=== PATIENT | male | born 1970 | race Caucasian/White ===

== ENCOUNTER 2016-11-12 22:22 | Emergency (ER) | payer OTHER ==
[~2016-11-12] VITALS: Ht 170.2 cm; Wt 113.6 kg
[2016-11-12 22:26] VITALS: BP 177/100; PULSE 100; RESP 20; O2SAT 97
[2016-11-13 00:29] LABS: APPEARANCE,URINE HAZY (CLEAR,HAZY); COLOR,URINE STRAW (YELLOW); OCCULT BLOOD,URINE NEGATIVE (NEGATIVE); PH,URINE 5.5 (5.0-8.0); UROBILINOGEN,URINE NORMAL (NORMAL)
--- NOTE | 2016-11-13 01:31 | ED.REPORT ---
HPI-Back Pain 40 and Over Date of Service Nov 13, 2016 ED Provider: Dr. Martinez The pt is a 46 y/o male with a hx of Type II DM who presents to the ED complaining of sharp lower back pain that exacerbates with movement, onset last week. He denies numbness and weakness unilaterally, numbness and weakness in his lower extremities and dysuria. The pt has been camping recently and has been lifting and exerting himself as well as sleeping on a hard surface. Nursing Notes Stated Complaint: SHARP LEFT AND RIGHT FLANK AND RIB PAIN Chief Complaint: Back Pain or Injury Nursing Notes Reviewed: Yes Allergies: Coded Allergies: No Known Allergies (Verified , 11/12/16) Uncoded Allergies: SOME PETS AND SOME PLANTS (Allergy, Unknown, 12/01/04) Scheduled PRN Ibuprofen (Ibuprofen) 400 Mg Tablet 400 MG PO QID PRN PRN For Pain Methocarbamol (Robaxin-750) 750 Mg Tablet 1-2 TAB PO QID PRN PRN For Spasm Tramadol (Tramadol) 50 Mg Tablet 100 MG PO Q6H PRN PRN For Pain General Time Seen by MD: 01:31 Chief Complaint Back pain Hx Obtained From: Patient Arrived By: Walk-in Sudden in Onset?: No Onset Occurred: 1 week ago Symptom Duration: Since onset Location: : Spinal lumbar area Quality: Painful Radiation: : Does not radiate Severity: Current: Moderate Severity: Maximum: Moderate Recent Healthcare: No recent doctor visit Similar Sx Previous: No Past Medical History Past Medical History Type II DM Past Surgical History none reported Smoking History Unknown if Ever Smoker Social History Alcohol Use: "Social" Other Social History: Good social support Ambulatory Status Independent Review of Systems Male: Denies Dysuria Musculoskeletal: Reports: Back pain Neurologic: Denies: Numbness (in lower extremities and unilaterally), Weakness (lower extremities and unilaterally) Complete sys rev & neg: except as marked. Physical Exam Initial Vital Signs Vital Signs (First) Date Time Temp Pulse Resp B/P Pulse Ox O2 Delivery O2 Flow Rate FiO2 11/12/16 22:26 36.4 100 20 177/100 97 Room Air Initial VS: Reviewed Head / Eyes: Atraumatic, Normocephalic Neck: Supple, Non-tender, Full range of motion Extremities: Vascular intact, Neuro intact, No swelling, No tenderness Skin: Warm, Dry, No cyanosis General/Constitutional: Awake, Alert, No acute distress, Well appearing, Cooperative Respiratory / Chest: Atraumatic, Breath sounds NL, Breath sounds = bilat, No respiratory distress, No rales, No rhonchi, No wheezing Cardiovascular: Heart rate NL, Regular rhythm, Heart sounds NL, No gallop, No murmurs, No rubs Abdomen: Atraumatic, Soft, Non-tender, No guarding, No rebound Back: Atraumatic, Full range of motion, No CVA tenderness Paraspinus tenderness, worse on the left. Palpable spasms Neurologic: Oriented X3, No sensory deficits Interpretation & Diagnostics Lab Results Interpretation Test 11/12/16 23:59 Urine Color Straw (YELLOW) Urine Appearance Hazy (CLEAR,HAZY) Urine pH 5.5 (5.0-8.0) Urine Specific [place] 1.039 (1.003-1.035) Urine Protein Negativemg/dL (NEG,TRACE) Urine Glucose (UA) >2000mg/dL (NEGATIVE) Urine Ketones Negativemg/dL (NEGATIVE) Urine Occult Blood Negative (NEGATIVE) Urine Nitrite Negative (NEGATIVE) Urine Bilirubin Negative (NEGATIVE) Urine Urobilinogen Normalmg/dL (NORMAL) Urine Leukocyte Esterase Negative (NEGATIVE) Urine RBC 0-2/hpf (0-2) Urine WBC 0-5/hpf (0-5) Urine Epithelial Cells Occasional/hpf (NONE-MOD) Urine Crystals None seen (NONE SEEN) Urine Bacteria None/hpf (NONE-FEW) Urine Hyaline Casts None/lpf (NONE) Urine Granular Casts None seen (NONE SEEN) Urine Waxy Casts None seen (NONE SEEN) Urine Red Blood Cell Casts None seen (NONE SEEN) Urine White Blood Cell Casts None seen (NONE SEEN) Urine Mucus None seen (None Seen) Urine Trichomonas None seen (NONE SEEN) Urine Yeast None (NONE SEEN) Urinalysis Comment None Urine Culture Reflexed Not indicated Re-Eval/Medical Decision Med Decision/Clinical Course Low back pain without sciatica and without significant worrisome findings otherwise. No indication for imaging. No trauma beyond mild lifting. Improving over the course of his stay here. He is regretting presenting at this point since he is already mostly better. Discharged home with Robaxin, baseline NSAID, and brief when necessary tramadol. Source of Hx: Old records Re-Evaluation/Progress : Time of Eval: 01:38 Re-Evaluation/Progress Note: Rechecked pt. Discussed lab results, diagnosis and plan to discharge. Pt understands and agrees with the plan. F/U instruction and RTER warning given. All questions addressed. Counseled Regarding: Diagnosis, Lab results, Need for follow-up, When/why to return to ED Discharge & Departure Impression: Primary Impression: Lumbosacral strain Encounter type: initial encounter Qualified Code: S39.012A - Strain of muscle, fascia and tendon of lower back, initial encounter Additional Impression: Low back pain Chronicity: acute Back pain laterality: bilateral Sciatica presence: without sciatica Qualified Code: M54.5 - Low back pain Disposition: Home Discharge Condition All VS Reviewed: Yes Condition: Stable Patient Instructions: Acute Low Back Pain (ED), Sciatica (ED) Additional Instructions: Ibuprofen 4 mg four times daily. Robaxin two tablets four times daily. Brief use of tramadol two tablets four times daily if needed for pain. Apply heat to the back. Avoid sitting avoid bending avoid lifting. Use a back roll or lumbar support when you do sit. Follow-up with your doctor in the office. Return for numbness, weakness, bowel or bladder complaints. Referrals: Kira Rajput PA-C (PCP) Scribe Attestation Portions of this note were transcribed by Lilibeth Pereira. I,, personally performed the history, physical exam and medical decision-making;I reviewed and confirmed the accuracy of the information in the transcribed note. Signed by Lisa Boswell. 11/13/16 copies to: Kira Rajput PA-C, Christopher W MD Nov 13, 2016 01:31 Lilibeth Pereira Nov 13, 2016 01:42
[2016-11-13] MEDS ORDERED: IBUP400T22 PO (01:45)
[2016-11-13] MEDS ORDERED: TRAM50TA2 PO (01:45)
[2016-11-13] MEDS ORDERED: METH-313 PO (01:45)
[2016-11-13 02:13] VITALS: BP 135/83; PULSE 93; RESP 16; O2SAT 97
[2016-11-13] MEDS ORDERED: OMEP20CA11 PO (14:26)
[2016-11-13] MEDS ORDERED: AGM875T PO (14:26)
[2016-11-13] MEDS ORDERED: CYCL10TA9 PO (14:26)
[2016-11-13] MEDS ORDERED: LIRA0.6P2 SQ (14:26)
[2016-11-13] MEDS ORDERED: MECL-114 PO (14:26)
[2016-11-13] MEDS ORDERED: NPR500T PO (14:26)
[2016-11-13] MEDS ORDERED: DAPA10TA PO (14:26)
[2016-11-13] MEDS ORDERED: LISI2.5T PO (14:26)
[2016-11-13] MEDS ORDERED: METF500T4 PO (14:26)
== END 2016-11-13 02:13 | disposition home or self-care (01) ==
LOC: SED 22:22
DX: S39.012A Strain of muscle, fascia and tendon of lower back, initial encounter (principal); X50.0XXA Overexertion from strenuous movement or load, initial encounter; Y93.89 Activity, other specified; Y92.9 Unspecified place or not applicable; Y99.8 Other external cause status; E11.9 Type 2 diabetes mellitus without complications
CPT/HCPCS: 81000; 82948; 96372; 99284; J1885

== ENCOUNTER 2016-11-15 10:10 | Day surgery (SDC) | payer OTHER ==
[~2016-11-15] VITALS: Ht 170.2 cm; Wt 113.4 kg
--- NOTE | 2016-11-15 07:46 | PCM.HPANE ---
Patient Data Surgeon Admitting Provider: Attending Provider:Esequiel Montenegro MD Primary Care Physician:Kira Rajput PA-C Other Provider:Patrick Christiansen Anesthesia Reason for Visit Reflux Esophagitis Ht/WT & BMI Body Mass Index Allergies Coded Allergies: No Known Allergies (Verified , 11/12/16) Uncoded Allergies: SOME PETS AND SOME PLANTS (Allergy, Unknown, 12/01/04) Past Anesthesia History Anesthesia History: Denies:: Abnormal Airway, Difficult Intubation Diabetes History Hx Diabetes?: Yes MRSA MRSA: No Medications Reported Medications Liraglutide (Victoza 3-Lyle)0.6 Mg/0.1 Ml Pen.injctr0.6 Mg SQ 11/13/16 Omeprazole 20 Mg Capsule.dr20 Mg PO DAILY Ref 0 11/13/16 Naproxen 500 Mg Sei389 Mg PO BID PRN For Pain Ref 0 11/13/16 Metformin 500 Mg Tablet1,000 Mg PO BID Ref 0 11/13/16 Meclizine (Bonine)25 Mg Tab.chew25 Mg PO TID 11/13/16 Lisinopril 2.5 Mg Tablet2.5 Mg PO DAILY 30 Days Ref 0 11/13/16 Dapagliflozin Propanediol (Farxiga)10 Mg Czihog22 Mg PO DAILY 11/13/16 Cyclobenzaprine 10 Mg Yaucnc89 Mg PO HS PRN Spasm Ref 0 11/13/16 Discontinued Reported Medications Amoxicillin/Clav K 875-125 mg 875 Mg Tab1 Tablet PO BID #20 TABLET Ref 0 11/13/16 Discontinued Scripts Methocarbamol (Robaxin-750)750 Mg Tablet1-2 Tab PO QID PRN For Spasm #40 TAB Prov:Viktor Martinez MD 11/13/16 Ibuprofen 400 Mg Njoezx473 Mg PO QID PRN For Pain #60 TABLET Prov:Viktor Martinez MD 11/13/16 Tramadol 50 Mg Ibngdp992 Mg PO Q6H PRN For Pain #16 TABLET Prov:Viktor Martinez MD 11/13/16 History History of ENT Problems?: No HEENT History: Denies:: Abnormal Airway Difficult Intubation Hearing Problem Denture Type: None Teeth Condition: Within Normal Limits Hx of Heart Problems?: Yes Cardiovascular History: Denies:: AICD Abdominal Aortic Aneurism Atrial Fibrillation Cardiac Surgery Chest Pain Congestive Heart Failure Coronary Artery Disease Edema Heart Murmur Hypertension Irregular Heartbeat Pacemaker Peripheral Vascular Rheumatic Fever Thrombophlebitis Valvular Heart Disease Hx of Respiratory Problem?: Yes Respiratory History: Positive for:: Use of C-PAP Machine Denies:: Asthma COPD Chest Surgery Cough Dyspnea Emphysema Hemoptysis Oxygen Administration Pneumonia Pulmonary Embolism Tuberculosis Use of Inhalers / NEBS Hx Neurologic Problems?: No Neurological History: Denies:: CVA Hx of GI Problems?: No Hx of Problems?: No Genitourinary History: Denies:: HX of Hemodialysis Kidney Stones Urinary Tract Infection Hx Musculoskeletal Problems?: No Musculoskeletal History: Denies:: Back Injury Degenerative Joint Fibromyalgia Joint Replacement Musculoskeletal Trauma Myasthenia Gravis Osteoarthritis Rheumatoid Arthritis Systemic Lupus Hx of Psycho/Social Problems?: No Psycho Social History: Denies:: Anxiety Bipolar Disorder Hx Depression Suicide Attempt Hx Surgeries?: No Hx Any Other Health Problems?: No Other History: Denies:: Cancer Endocrine Disease Hospitalization Thyroid Disease Hx Diabetes: No Hx Alcohol Use: Yes (SELDOM) Smoking Status: Unknown if Ever Smoker Stop/Bang Risk Assessment Category Category 1A: Patient has history of documented sleep apnea, and HAS NOT received any narcotic, sedative or anesthesia administration during this stay. Category 1B: Patient has history of documented sleep apnea, and HAS received any narcotic , sedative or anesthesia administration during this stay Category 2: Patient has SUSPECTED Obstructive Sleep Apnea, and HAS received any narcotic , sedative or anesthesia administration during this stay. Category 3: Patient has SUSPECTED Obstructive Sleep Apnea and HAS NOT received narcotic, sedative or anesthesia administration during this stay. Category 4: Outpatient in Procedural Areas with known sleep apnea or who screen positive for High Risk via the STOP/BANG questionnaire. Exam Exam General Appearance: Alert, Oriented X3, Cooperative HEENT/AIRWAY: MP 4, Neck Movement (thick, from), Mouth Opening (wnl) Lungs: Clear to Auscultation Heart: Exam Unremarkable Plan Impression Patient chart reviewed, patient interviewed and anesthestic plan with risks, benefits, and alternatives discussed, and informed consent obtained. ASA Physical Status: ASA2 Mod Systemic Disease Anesthetic Plan: MAC Bene/Risks/Altern/Consents: Yes HP Complete Prior to Induction: Yes Juan Laguerre MD Nov 15, 2016 07:46
[~2016-11-15 10:10] MED LIST: AGM875T PO; CYCL10TA9 PO; DAPA10TA PO; LIRA0.6P2 SQ; LISI2.5T PO; Lactated Ringer's 1,000 ML IV ONE; MECL-114 PO; METF500T4 PO; NPR500T PO; OMEP20CA11 PO
[2016-11-15] MEDS ORDERED: Propofol 10,000 mCg/mL 20 mL Inj ONE (10:11)
[2016-11-15] MEDS ORDERED: fentaNYL-PF 50 mCg/mL 2 mL Inj ONE (10:11)
[2016-11-15 10:30] VITALS: BP 144/95; PULSE 85; RESP 14; O2SAT 97
[2016-11-15] MEDS ORDERED: Lactated Ringer's 1,000 ML IV SCH (11:13)
[2016-11-15] MEDS ORDERED: MetoCLOpramide 5 mg/mL 2 mL Inj IVPUSH PRN (11:15)
[2016-11-15] MEDS ORDERED: Ondansetron 2 mg/mL 2 mL Inj IVPUSH PRN (11:15)
[2016-11-15 11:21] VITALS: BP 111/72; PULSE 80; RESP 14; O2SAT 95
--- NOTE | 2016-11-15 11:21 | PCM.ENDEGD ---
EGD Date of Service: Nov 15, 2016 Physician Esequiel Montenegro MD Pre Procedure Diagnosis: Reflux Post Procedure Dx & Findings: Gastritis gastric polyp Procedure Esophagogastroduodenoscopy PROCEDURE IN DETAIL: Anesthesia used After proper sedation, Olympus video endoscope was inserted into patient's mouth and esophagus was successfully intubated. Scope introduced esophagus. Esophagus showed normal shiny whitish mucosa consistent with squamous cell component. Z line was intact at 40 cm from the incisors. Scope further events to the stomach. The stomach had redness atrophy consistent with gastritis. However in the antrum there was a 3-4 mm flat polypoid structure. Narrow banding used. Adenomatous type pattern noted. Cold Snare used and this was completely resected. Cardia fundus body antrum pylorus were all visualized. Retroflexion was done. Stomach was easily inflated and deflatable using air. Scope further events to the distal duodenum. Duodenum revealed normal villous structures with normal appearing folds without any mass ulcer erosion. Impression Gastritis Gastric polyp Recommendation Await biopsies Presedation Assessment Risks and Benefits Informed consent was obtained from the patient after all risks and benefits including but not limited to drug reaction, infection, pain, bleeding, perforation, as well as alternatives were discussed. Patient monitoring Continuous pulse oximetry, cardiac monitoring, blood pressure monitoring, IV access, and oxygen at 2L per nasal cannula. Complications There were no periprocedural complications identified. Post Procedure Plan Post Procedure Recommendations 1. Restrict activities today. 2. Resume normal activities in the morning. 3. Resume medications. 4. GERD behavioral modification: - Avoid fatty, acidic, spicy, large meals - Do not lie down after meals - Do not eat or drink anything for at least 2 1/2 hours before going to bed at night - Discontinue tobacco and alcohol - Decrease or avoid caffeine - Avoid chocolate and mints - Decrease weight - Avoid aspirin and non steroidal anti-inflammatory agents (NSAID) such as Aleve, Advil, Mobic, Naproxen, Ibuprofen, etc 5. Add proton pump inhibitor. Take 30 minutes before 1st meal of the day. 6. Patient informed of normal post procedure side effects as bloating, drowsiness, blood streaking in the stool 7. If gastric biopsy reveal H.pylori, continue with appropriate treatment 8. If small bowel biopsy reveals celiac, continue with appropriate treatment 9. Please don't hesitate to call me with any questions Esequiel Montenegro MD Nov 15, 2016 11:21
--- NOTE | 2016-11-15 11:22 | PCM.ENDCOL ---
Colonoscopy Date of Service: Nov 15, 2016 Physician Esequiel Montenegro MD Pre Procedure Diagnosis: Family history of colon cancer Post Procedure Dx & Findings: Hemorrhoids Procedure Colonoscopy PROCEDURE IN DETAIL: Prep adequate Withdrawal time 12 minutes After unremarkable rectal examination the Olympus video colonoscope was inserted patient's anal canal and was advanced to cecum. Landmarks were identified including the ileocecal valve and appendiceal orifice. Scope was withdrawn systematically. Visualized colonic mucosa showed healthy shiny mucosa with normal healthy-appearing vasculature. In the rectum retroflexion was done which showed hemorrhoids. Anal canal was inspected carefully on the way out and hemorrhoids noted. Impression Family history of colon cancer Hemorrhoids Recommendation Repeat colonoscopy in 5 years Presedation Assessment Risks and Benefits Informed consent was obtained from the patient after all risks and benefits including but not limited to drug reaction, infection, pain, bleeding, perforation, as well as alternatives were discussed. Patient monitoring Continuous pulse oximetry, cardiac monitoring, blood pressure monitoring, IV access, and oxygen at 2L per nasal cannula. Complications There were no periprocedural complications identified. Post Procedure Plan Post Procedure Recommendations 1. Restrict activities today. 2. Resume normal activities in the morning. 3. Resume medications. 4. Patient informed of normal post procedure side effects as bloating, drowsiness, blood streaking in the stool. 5. average risk CRCS. If colon polyps come back as: -Hyperplastic- can repeat colonoscopy in 10 years -Tubular adenoma- repeat colonoscopy in 5 years -Tubulovillous/villous adenoma- repeat colonoscopy in 3 years -If any dysplasia- return to clinic as soon as possible 6. Please don't hesitate to call me with any questions. Esequiel Montenegro MD Nov 15, 2016 11:22
[2016-11-15 11:30] VITALS: BP 98/71; PULSE 77; RESP 14; O2SAT 95
--- NOTE | 2016-11-15 11:34 | PCM.ANEP1 ---
Post Anesthesia PACU Phase 1 Assessment Vital Signs Vital Signs Date Time Temp Pulse Resp B/P Pulse Ox O2 Delivery O2 Flow Rate FiO2 11/15/16 11:21 80 14 111/72 95 Room Air 11/15/16 10:30 85 14 144/95 97 Room Air Anesthetic Administered: MAC Level of Alertness: Awake, talking CARTER's with Equal Strength: Yes Pain: No Nausea or Vomiting: No CV Function & Hydration Stable: Yes Airway Device: Oxygen Delivery: Room Air Lungs: Normal Air Movement PACU Phase 2 Assessment Complications: No Follow up Care: No Patient Instructions Provided: N/A Juan Laguerre MD Nov 15, 2016 11:34
[2016-11-15 11:40] VITALS: BP 111/91; PULSE 80; RESP 14; O2SAT 95
--- NOTE | 2016-11-19 10:59 | PATH ---
SURGICAL PATHOLOGY Attending Physician:Esequiel Montenegro M.D. CASE STATUS: Signed Out PATIENT NAME: MAXIMO JOHNSON PID: [id number] : 1970 DATE COLLECTED:11/15/2016 23:42 SPECIMEN: 1: Gastric, Biopsy 2: Stomach, Polyp, Biopsy CLINICAL HISTORY: PERSONAL HISTORY OF GARCIA'S, FAMILY HISTORY OF COLON CANCER 1). GASTRIC BIOPSY 2). GASTRIC POLYP FINAL DIAGNOSIS: 1. Gastric Biopsy: Gastric body and antral mucosa with no diagnostic alterations. Negative for Helicobacter organisms on H&E stains. Negative for intestinal metaplasia. Negative for dysplasia or malignancy. 2. Gastric Polyp: Gastric adenoma. DIAGNOSIS COMMENT: As part of routine quality eng, the gastric polyp biopsy was reviewed by Dr. Jerson Lozoya, who concurs with the diagnosis. ICD10: D13.1 GROSS DESCRIPTION: Received two formalin-filled containers, each labeled with the patient' s name. 1. Received in formalin, labeled with the patient' s name and "gastric biopsy", are four fragments of casiano, soft tissue ranging from 0.1 x 0.1 x 0.1 cm to 0.3 x 0.1 x 0.1 cm. The fragments are totally submitted in cassette 1A. 2. Received in formalin, labeled with the patient' s name and "gastric polyp", is one fragment of casiano, soft tissue measuring 0.6 x 0.4 x 0.3 cm. The fragment is totally submitted in cassette 2A. ([id number]) MICRO DESCRIPTION: Please see microscopic. ICD-9 CODES: CPT CODES: 1: 52917 2: 88789 Electronically Signed Out Rosa Paniagua MD [facility] [address], [place] [address] Technical component performed at [facility], [facility] [address], [place], [address]
== END 2016-11-15 23:59 ==
LOC: END 10:10
PROVIDERS: ATTEND Internal Medicine
DX: Z12.11 Encounter for screening for malignant neoplasm of colon (principal); K64.8 Other hemorrhoids; D13.1 Benign neoplasm of stomach; K21.0 Gastro-esophageal reflux disease with esophagitis; K29.50 Unspecified chronic gastritis without bleeding; I10 Essential (primary) hypertension; E11.9 Type 2 diabetes mellitus without complications; Z80.0 Family history of malignant neoplasm of digestive organs; Z79.84 Long term (current) use of oral hypoglycemic drugs; Z79.899 Other long term (current) drug therapy
CPT/HCPCS: 43239; 43251; 45378; J2250; J2704; J3010; J7120